=== PATIENT | female | born 1960 | race Caucasian/White ===

== ENCOUNTER 2018-04-22 08:28 | Emergency (ER) | payer BC ==
[2018-04-22] MEDS: predniSONE 20 MG TAB PO (08:47)
== END 2018-04-22 09:08 | disposition home or self-care (01) ==
LOC: FTE 08:28
DX: R21 Rash and other nonspecific skin eruption (principal); R03.0 Elevated blood-pressure reading, without diagnosis of hypertension
CPT/HCPCS: 99283; J7512

== ENCOUNTER 2019-08-12 15:35 | Emergency (ER) | payer BC | END 2019-08-12 17:08 | disposition home or self-care (01) | LOC: FTE 17:08 | DX: L02.416 Cutaneous abscess of left lower limb (principal); L03.116 Cellulitis of left lower limb | CPT/HCPCS: 99283; Z7502 ==